=== PATIENT | male | born 1965 | race Caucasian/White ===

== ENCOUNTER 2016-12-13 14:50 | Emergency (ER) | payer MEDICARE ==
[~2016-12-13] VITALS: Ht 175.3 cm; Wt 62.6 kg
[~2016-12-13 14:50] MED LIST: BACITRACIN30 GM TOP; FLEXERIL PO; KEFLEX PO; LORTAB 7.5-5001 TAB PO; METHADONE PO; TYLOX 5/500 CAP1 CAP PO
[2016-12-13] MEDS ORDERED: NORVASC10 MG PO (15:40)
[2016-12-13] MEDS ORDERED: DOLOPHINE HCL5 MG PO (15:40)
[2016-12-13] MEDS ORDERED: FLEXERIL10 MG (15:40)
== END 2016-12-13 16:34 | disposition home or self-care (01) ==
LOC: SED 14:50
DX: T63.461A Toxic effect of venom of wasps, accidental (unintentional), initial encounter (principal); I10 Essential (primary) hypertension; F17.210 Nicotine dependence, cigarettes, uncomplicated; Z79.899 Other long term (current) drug therapy
CPT/HCPCS: 99283